=== PATIENT | male | born 1950 | race Caucasian/White ===

== ENCOUNTER 2020-09-24 13:32 | Outpatient (CLI) | payer MEDICARE, SELFPAY ==
--- NOTE | ~2020-09-24 | MR_ITS ---
EXAMINATION: MR lumbar spine wo [facility] EXAM DATE: 09/24/2020 14:13 INDICATION: Lumbar radiculopathy radiculopathy. Left hip pain. TECHNIQUE: Multi-sequential, multiplanar MR images of the lumbar spine were obtained without contrast . Sagittal T1, T2, T2 fat saturation images. Axial T2 weighted images. Comparison is made to prior examination from 05/06/2018. FINDINGS: There is moderate disc disease at L4-5, mild at the other lumbar levels. There is 3 mm ante rolisthesis L5 on S1 with bilateral chronic spondylolysis identified. There are no suspicious marrow signal abnormalities. Paraspinal soft tissue is unremarkable. The conus medullaris terminates at the L1/2 level and has normal signal intensity and morphology. Level by level evaluation: T12-L1: Disc does not extend beyond the endplate margin. Facet arthropathy: Mild. Neural foraminal stenosis: No stenosis. Central canal stenosis: No stenosis. L1-L2: Disc does not extend beyond the endplate margin. Facet arthropathy: Mild. Neural foraminal stenosis: No stenosis. Central canal stenosis: No stenosis. L2-L3: There is a minimal diffuse disc bulge. Facet arthropathy: Mild to moderate. Neural foraminal stenosis: No stenosis. Central canal stenosis: No stenosis. L3-L4: There is a mild diffuse disc bulge. Facet arthropathy: Moderate. Neural foraminal stenosis: No stenosis. Central canal stenosis: Mild. L4-L5: There is a mild diffuse disc bulge. Facet arthropathy: Mild to moderate. Neural foraminal stenosis: Mild left. Central canal stenosis: No stenosis. L5-S1: There is a mild diffuse disc bulge, with superimposed small far left protrusion into the neura l foramen and lateral recess. Facet arthropathy: Mild. Neural foraminal stenosis: Moderate left, mild to moderate right. Central canal stenosis: No stenosis. There is mild progression in lumbar spondylosis compared to 2018 study. IMPRESSION: 1. L5-S1 mild disc bulge, left-sided protrusion contributing to moderate left neural foraminal steno sis. 2. L5-S1 chronic bilateral spondylolysis and 3 mm anterolisthesis. Reviewed, dictated and finalized at location B. [facility] [employer] IMPRESSION: 1. L5-S1 mild disc bulge, left-sided protrusion contributing to moderate left neural foraminal stenosis. 2. L5-S1 chronic bilateral spondylolysis and 3 mm anterolisthesis.
== END 2020-09-24 13:33 ==
PROVIDERS: PCP Internal Medicine; Visit Provider Nurse Practitioner Family
DX: M47.27 Other spondylosis with radiculopathy, lumbosacral region (principal); M48.07 Spinal stenosis, lumbosacral region; M47.25 Other spondylosis with radiculopathy, thoracolumbar region; M48.05 Spinal stenosis, thoracolumbar region
CPT/HCPCS: 72148

== ENCOUNTER 2022-03-26 15:48 | Emergency (ER) | payer MEDICARE, SELFPAY ==
[2022-03-26 16:16] VITALS: BP 122/64; PULSE 56; RESP 16; TEMP 36.7; O2SAT 98
--- NOTE | 2022-03-26 16:45 | ED.SKABFB ---
HPI - Skin/Abscess/Foreign Bdy General Chief complaint: Skin/Abscess/Foreign Body Stated complaint: infected right 4th finger Time Seen by Provider: 03/26/22 16:45 Source: patient, RN notes reviewed and old records reviewed Mode of arrival: ambulatory Limitations: no limitations History of Present Illness HPI narrative: 71-year-old male presents to the [facility] with complaints of an infected right fourth finger trigger and symptoms started states its been a couple of days they have been trying up to poke a needle and it Patient denies any diabetes. reports that he has anxiety, depression and heart issues. Per medical record has hypertension and high cholesterol Related Data Home Medications Medication Instructions Recorded Confirmed atorvastatin 20 mg tablet 20 mg PO DAILY 10/03/19 11/07/21 bupropion HCl 300 mg 24 hr tablet, 300 mg PO QAM 10/03/19 11/07/21 extended release (Wellbutrin XL) carvedilol 6.25 mg tablet 6.25 mg PO Q12H 10/03/19 11/07/21 escitalopram oxalate 20 mg tablet 10 mg PO DAILY 10/03/19 11/07/21 (Lexapro) fluticasone propionate 50 1 spray intranasal DAILY 10/03/19 11/07/21 mcg/actuation nasal spray,suspension (Flonase Allergy Relief) ipratropium 0.5 mg-albuterol 3 mg 3 ml inhalation Q6H PRN 10/03/19 11/07/21 (2.5 mg base)/3 mL nebulization soln lisinopril 20 mg tablet 20 mg PO DAILY 10/03/19 11/07/21 loratadine 10 mg tablet (Claritin) 10 mg PO DAILY 10/03/19 11/07/21 metformin 500 mg tablet 500 mg PO DAILY 10/03/19 11/07/21 omeprazole 40 mg capsule,delayed 40 mg PO DAILY 10/03/19 11/07/21 release triamcinolone acetonide 0.025 % 1 applic topical DAILY 10/03/19 11/07/21 topical ointment Allergies Allergy/AdvReac Type Severity Reaction Status Date / Time No Known Allergies Allergy Unknown Verified 11/07/21 14:55 Review of Systems Review of Systems: All systems reviewed & are unremarkable except as noted in HPI and below Constitutional: Constitutional: Reports no additional constitutional complaints, Denies chills and Denies fever(s) Eyes: Eyes: Reports no additional eye complaints ENT: Reports system reviewed and no additional complaints, except as documented Cardiovascular: Cardiovascular: Reports no additional cardiovascular complaints Respiratory: Respiratory: Reports no additional respiratory complaints Gastrointestinal: Gastrointestinal: Reports no additional gastrointestinal complaints Musculoskeletal: Musculoskeletal: Reports no additional musculoskeletal complaints Integumentary/Breasts: Skin/Breast: Reports as per HPI and Reports erythema (Base of nail right 4th finger) Neurologic: Reports system reviewed and no additional complaints, except as documented Psychiatric: Psychiatric: Reports no additional psychiatric complaints Allergic/Immunologic: Allergic/Immunologic: Reports no additional allergic/immunologic complaints [facility] Past Medical History Medical History Diabetes Hypertension Obesity (BMI 30-39.9) Family History Family History Sibling Depression Family history of arthritis Asthma Father Family history of diabetes mellitus in first degree relative Family history of lung cancer Acute myocardial infarction Diabetes mellitus Family history of cardiovascular disease Family history of malignant neoplasm Mother Family history of cardiovascular disease Acute myocardial infarction Social History Social History Smoking status: Former smoker Smoking end date: 09/10/01 Alcohol intake: current Alcohol use details: rarely Comments At the time of my signature, I reviewed and agree with the nursing past medical, surgical, social, and family history. There is no relevant family history pertinent to the patient complaint. Exam Const: Gen
== END 2022-03-26 17:27 | disposition home or self-care (01) ==
PROVIDERS: Emergency Provider Nurse Practitioner; PCP Internal Medicine
DX: L03.011 Cellulitis of right finger (principal); E11.9 Type 2 diabetes mellitus without complications; I10 Essential (primary) hypertension; Z87.891 Personal history of nicotine dependence
CPT/HCPCS: 10060; 87070; 87075; 87077; 87147; 87181; 87186; 87205; 99213; G0463

== ENCOUNTER → 2022-04-11 15:40 | Outpatient (CLI) | payer MEDICARE, SELFPAY ==
--- NOTE | ~2022-04-11 | MR_ITS ---
EXAMINATION: MR cervical spine wo con DATE: 04/11/2022 16:31 INDICATION: Cervical myelopathy. TECHNIQUE: Magnetic resonance imaging (MRI) of the cervical spine was performed without intravenous c ontrast. Sequences included sagittal T2-weighted FSE, sagittal T2-weighted FS FSE, sagittal T1-weight ed FSE, axial MERGE, and axial T2-weighted FSE. COMPARISON: CT cervical spine 01/11/2019, MRI 06/05/2018 FINDINGS: There is kyphosis of cervical spine. There is 2 mm retrolisthesis of C5 on C6. There is mil d chronic anterior wedging of C4, C5, and C6 vertebral bodies. There is severely decreased disc heigh t at C4-C5 and C5-C6. There is increased T2-weighted signal intensity in the spinal cord at C3-C4, co nsistent with myelomalacia. The following disc levels are specifically discussed: C2-C3: The disc does not extend beyond the endplate margin. There is ankylosis of the uncovertebral j oints without hypertrophy. There is mild right facet joint osteoarthritis. There is ankylosis of left facet joint with mild hypertrophy. There is mild left neural foraminal stenosis. There is no central canal stenosis. C3-C4: There is a central protrusion. There is mild bilateral uncovertebral joint osteoarthritis. The re is severe bilateral facet joint osteoarthritis. There is mild left neural foraminal stenosis. Ther e is mild central canal stenosis. C4-C5: The disc is bulging. There is severe bilateral uncovertebral joint osteoarthritis. There is mo derate right and severe left facet joint osteoarthritis. There is moderate bilateral neural foraminal stenosis. There is mild central canal stenosis with ventral indentation of the spinal cord. C5-C6: There is bulging. There is severe bilateral uncovertebral joint osteoarthritis. There is mild bilateral facet joint osteoarthritis. There is moderate bilateral neural foraminal stenosis. There is mild central canal stenosis. C6-C7: The disc is bulging. There is mild bilateral uncovertebral joint osteoarthritis. There is verito re bilateral facet joint osteoarthritis. There is no neural foraminal stenosis. There is mild central canal stenosis. C7-T1: The disc does not extend beyond the endplate margin. There is no uncovertebral joint osteoarth ritis. There is severe bilateral facet joint osteoarthritis. There is mild right neural foraminal jes nosis. There is no central canal stenosis. IMPRESSION: 1. Myelomalacia at C3-C4. Motion artifact decreases specificity. 2. Severe cervical spondylosis, stable from 06/05/2018. Reviewed, dictated and finalized at location A.
== END ==
PROVIDERS: PCP Internal Medicine; Visit Provider Internal Medicine
DX: G95.9 Disease of spinal cord, unspecified (principal); M47.892 Other spondylosis, cervical region
CPT/HCPCS: 72141

== ENCOUNTER → 2022-07-03 11:02 | Outpatient (CLI) | payer MEDICARE, SELFPAY ==
--- NOTE | ~2022-07-03 | XR_ITS ---
XR cervical spine 4-5V DATE: 07/03/2022 11:19 INDICATION: Neck pain TECHNIQUE: AP, open-mouth and flexion, extension and neutral lateral views COMPARISON: None FINDINGS: There is reversal of cervical curvature, likely due to muscle spasm. C1 and C2 are normally aligned and the odontoid process is intact. There is 2 mm anterolisthesis at C3-4 in flexion, 1.2 mm anterolisthesis in neutral position, nearly resolved in extension. There is moderately severe degenerative disc disease at C4-5 and C5-C6 with mild retrolisthesis in ex tension. There is prominent uncovertebral joint spurring bilaterally at C4-5, C5-6. There is degenerative change at the apophyseal joints as well throughout the cervical spine. Otherwise no fracture or dislocation or locked facet or prevertebral soft tissue swelling. IMPRESSION: Reversal of cervical curvature 2 mm anterolisthesis at C3-4 in flexion, nearly reduced in extension right moderately severe degenera tive disc disease at C5-6 and C6-7, with mild retrolisthesis and extension Degenerative changes of apophyseal joints throughout the cervical spine and particularly at the C4-5 and C5-6 uncovertebral joints Reviewed, dictated and finalized at location A. IMPRESSION: Reversal of cervical curvature 2 mm anterolisthesis at C3-4 in flexion, nearly reduced in extension right mode rately severe degenerative disc disease at C5-6 and C6-7, with mild retrolisthe sis and extension Degenerative changes of apophyseal joints throughout the cervical spine and par ticularly at the C4-5 and C5-6 uncovertebral joints
== END ==
PROVIDERS: PCP Internal Medicine; Visit Provider Neurological Surgery
DX: M50.30 Other cervical disc degeneration, unspecified cervical region (principal)
CPT/HCPCS: 72050

== ENCOUNTER 2023-03-07 07:42 | Outpatient (CLI) | payer MEDICARE, SELFPAY ==
--- NOTE | 2023-03-07 | ECHO_ITS ---
Patient Info Name: Marck Hernandez Age: 72 years : 1950 Gender: Male Ht: 73 in Wt: 225 lbs BSA: 2.31 m2 HR: 47 bpm BP: 126 / 67 mmHg Heart Rhythm: Bradycardia Technical Quality: Fair Exam Date: 03/07/2023 7:51 AM Exam Location: [facility] Patient Status: Outpatient Admit Date: 03/07/2023 Staff Ordering Physician: Alejandra Mello MD Stone Planer: Kerline Villar RDCS Attending Provider: Alejandra Mello MD Referring Physician: Riaz CONLEY; Exam Type: CA echo dop color flow w con Study Info Indications I42.0 - Dilated cardiomyopathy Complete two-dimensional, color flow and Doppler transthoracic echocardiogram is performed with contrast to opacify the left ventricle and to improve the deliniation of the left ventricle endocardial borders. Contrast/Agitated Saline Contrast/Ag. Saline: Definity Amount: 3.00 ml Administered By: Kerline Villar RDCS New IV Access: Left Site Condition: IV removed Summary 1. Left ventricular chamber dimension is mildly enlarged. 2. Left ventricular systolic function is normal, estimated at 55-60%. 3. There is mildly increased left ventricular wall thickness. 4. The left ventricular diastolic function is grade I diastolic dysfunction. 5. Left atrial chamber dimension is moderately enlarged. 6. There is mild mitral valve regurgitation. 7. There is mild tricuspid valve regurgitation. 8. Mild pulmonary hypertension, estimated pulmonary arterial systolic pressure is 41 mmHg. Left Ventricle Left ventricular chamber dimension is mildly enlarged. Left ventricular systolic function is normal, estimated at 55-60%. There is mildly increased left ventricular wall thickness. The left ventricular diastolic function is grade I diastolic dysfunction. Right Ventricle Right ventricular chamber dimension is normal. Right ventricular systolic function is normal. Left Atria Left atrial chamber dimension is moderately enlarged. Right Atria Right atrial chamber dimension is normal. Atrial Septum Intact interatrial septum visualized by color flow imaging. Aortic Valve The aortic valve is trileaflet. There is mild aortic valve sclerosis. There is no aortic valve stenosis. There is trace aortic valve regurgitation. Pulmonic Valve The pulmonic valve is normal. There is no pulmonic valve stenosis. There is trace pulmonic regurgitation. Mitral Valve The mitral valve has normal leaflets. There is no mitral valve stenosis. There is mild mitral valve regurgitation. Tricuspid Valve The tricuspid valve leaflets are normal. There is no significant tricuspid valve stenosis. There is mild tricuspid valve regurgitation. Mild pulmonary hypertension, estimated pulmonary arterial systolic pressure is 41 mmHg. Pericardium/Pleural The pericardium appears normal. There is trivial pericardial effusion. Inferior Vena Cava Normal inferior vena cava with >50% collapse upon inspiration consistent with normal right atrial pressure, 10 mmHg. Aorta The aortic root size at the sinus of Valsalva is normal. The prox ascending aorta size is normal. Left Ventricular Outflow Tract Name Value Normal LVOT 2D LVOT Diameter 2.05 cm LVOT Doppler
[2023-03-07] MEDS: PERFLUTREN LIPID MICROSPHERES 1.5 ML VIAL DILUTED TO 10 ML TOTAL VOLUME IV PUSH (08:45)
--- NOTE | 2023-03-07 09:26 | IVDEFINITY ---
Prior to administration of IV Definity the patient was educated on the risks and benefits of the imaging enhancing agent including potential adverse side effects. The patient verbalized understanding. Allergies were verified. No exclusion criteria were identified and at least one of the following inclusion criteria were met: 1) physician request, 2) patient technically difficult to image (per the [place] [employer] guidelines of two or more segments not discernable within the apical view), or 3) questionable left ventricular function. ?
== END 2023-03-07 07:43 | disposition home or self-care (01) ==
LOC: ANHCARD 07:43
PROVIDERS: PCP Internal Medicine; Visit Provider Internal Medicine Cardiovascular Disease
DX: I42.0 Dilated cardiomyopathy (principal)
CPT/HCPCS: C8929; Q9957

== ENCOUNTER 2024-06-10 09:07 | Outpatient (CLI) | payer MEDICARE, SELFPAY ==
--- NOTE | 2024-07-07 13:07 | P.SLEEP_ITS ---
Sleep Study Date of Study: 06/10/24 Ordering Provider: YUMI Rhoades Interpreting Physician: Angie Bush DO Sleep Study Type: Split Polysomnogram Height: 1.83 m Weight: 106.594 kg Body Mass Index: 31.8 Neck Circumference (inches): 17 [place]: 9 Reason for Sleep Study Snoring, daytime hypersomnia, concerns for RBD. Previously diagnosed JS. Not compliant with BPAP Sleep History The patient is a 73-year-old male that had a sleep study ordered by the pulmonary group so the patient could requalify for PAP supplies after being noncompliant as well as evaluating the possibility of REM behavioral disorder. The patient denies awakening from sleep short of breath. He denies awakening at night with heartburn, belching or cough. He frequently snores. He occasionally snores loudly enough that others complain. He rarely has trouble sleeping when he has a cold. He denies waking up gasping for air throughout the night. He denies having breathing problems at night observed by himself or others. He rarely sweats excessively at night. He denies having heart palpitations or irregular heartbeats during the night. He occasionally falls asleep during the day but never while driving. He denies cataplexy. He occasionally has trouble at school or work due to sleepiness. He rarely feels unable to move while waking up or falling asleep. He denies experiencing vivid dreamlike scenes upon awakening or falling asleep. He denies feeling afraid of going to sleep. He rarely has nightmares. He rarely remembers his dreams. He rarely has thoughts racing through his mind. He rarely feels sad, depressed or anxious. He rarely has muscular tension. He rarely notices parts of his body jerk. He rarely kicks during the night. He denies having crawling and aching feelings in his legs and denies having leg pain during the night. He denies grinding his teeth during sleep and denies awakening with morning jaw pain. He is occasionally bothered by pain during the day but never awakened by pain during the night. He rarely wakes up feeling stiff in the morning. He rarely wakes up with sore or achy muscles. He rarely wakes up with pain in the neck, spine or other joints. He goes to bed at midnight on weekdays and at 2:00 a.m. on the weekends. It takes him 15-30 minutes to fall asleep. He wakes up 3-4 times throughout the night to urinate and is able to fall back asleep within 10 minutes. He wakes up at 10:00 a.m. on weekdays and at 11:00 a.m. on the weekends. He typically gets 6 8:11 p.m. of sleep per night. He will stay in bed for 10 minutes after waking up in the morning. He currently lives with his . He denies consuming any caffeinated beverages within 2 hours of bedtime. He denies engaging in physical exercise before bedtime. He will watch television before falling asleep. He will take naps in the afternoon or the evening but they are not refreshing. He consumes 4 caffeinated beverages per day. He quit smoking cigarettes 15 years ago. He denies alcohol and recreational drug use. [facility] Past Medical History Medical History Diabetes Diabetic polyneuropathy Hypertension Obesity (BMI 30-39.9) Surgical History Surgical History Hx of cholecystectomy Family History Family History Sibling Depression Family history of arthritis Asthma Father Family history of diabetes mellitus in first degree relative Family history of lung cancer Acute myocardial infarction Diabetes mellitus Family history of cardiovascular disease Family history of malignant neoplasm Mother Family history of cardiovascular disease Acute myocardial infarction Social History Social History Smoking status: Former smoker Smoking end date: 09/10/01 Alcohol intake: current Alcohol use details: rarely Substance use: never Substance use type: does not use Lack of Transportation: No Lack of Food: Never True Current Housing: I Have Housing Concerned About Future Housing: No Difficulty Paying Gas/Electric Bills: No Difficulty Paying for Meds: No Currently Unemployed: No Education: Trade/Vocational Certificate Difficulty w/ Childcare or Family Care: No Medications Home Medications Medication Instructions Recorded Confirmed Type atorvastatin 20 mg tablet 20 mg PO DAILY 10/03/19 04/25/24 History bupropion HCl 300 mg 24 hr tablet, 300 mg PO QAM 10/03/19 04/25/24 History extended release (Wellbutrin XL) carvedilol 6.25 mg tablet 6.25 mg PO Q12H 10/03/19 04/25/24 History escitalopram oxalate 20 mg tablet 10 mg PO DAILY 10/03/19 04/25/24 History (Lexapro) metformin 500 mg tablet 500 mg PO DAILY 10/03/19 04/25/24 History omeprazole 40 mg capsule,delayed 40 mg PO DAILY 10/03/19 04/25/24 History release triamcinolone acetonide 0.025 % 1 applic topical DAILY 10/03/19 04/25/24 History topical ointment morphine 15 mg tablet,extended 15 mg PO Q12H 06/05/22 04/25/24 History release tadalafil 5 mg tablet 5 mg PO DAILY 12/07/22 04/25/24 History coenzyme X01-[id number] E 100 mg-100 2 cap PO 05/08/23 04/25/24 History unit capsule tamsulosin 0.4 mg capsule 0.4 mg PO DAILY 12/07/23 04/25/24 History gabapentin 300 mg capsule See Rx Instructions .Route 01/22/24 04/25/24 Rx .COMPLEX #180 caps eszopiclone 2 mg tablet (Lunesta) 2 mg PO ONCE #1 tablet 04/25/24 04/25/24 Rx fexofenadine 180 mg tablet 180 mg PO DAILY 04/25/24 04/25/24 History Sleep Procedure A full night polysomnogram using the IGG multi-channel system recorded the standard physiologic parameters including EEG, EOG, submentalis EMG, anterior tibialis EMG, EKG, body position, nasal and oral airflow using nasal pressure sensor and thermistor.? Respiratory parameters of chest and abdominal movements were recorded with Respiratory Inductance Plethysmography belts. Oxygen saturation was recorded by pulse oximetry. Video monitoring was also performed. Sleep stages, periodic limb movements, and EEG arousals were scored in 30 second epochs according to the criteria of the AASM Scoring Manual. The Apnea-Hypopnea Index was calculated using [facility] guidelines for definition of hypopnea with 4% O2 desaturations while scoring respiratory events. Sleep Architecture During the diagnostic portion of the study, the total recording time was 158.0 minutes. The total sleep time was 126.5 minutes. Sleep latency was 9.4 minutes.? REM sleep was not achieved during this portion of the study. Sleep Efficiency was 80.1%. The patient had 13 awakenings for an awakening index of 6.2. Wake after sleep onset time was 22.0 minutes. The patient spent 9.5 minutes, 7.5% of total sleep time in Stage N1. The patient spent 117.0 minutes, 92.5% in Stage N2. The patient spent 0.0 minutes, 0.0% in Stage N3. The patient spent 0.0 minutes, 0.0% in Stage REM sleep. At 02:04:13 AM the patient was placed on PAP treatment and was titrated at pressures ranging from 5 cm H20 up to 9 cm H20 with EPR of 2. During the treatment portion of the study, the total recording time was 271.9 minutes.? The total sleep time was 146.0 minutes. Sleep latency was 11.5 minutes. REM latency was 192.0 minutes. Sleep Efficiency was 53.7%. Wake after Sleep Onset time was 114.0 minutes. The patient spent 28.5 minutes, 19.5% of total sleep time in Stage N1. The patient spent 95.5 minutes, 65.4% in Stage N2. The patient spent 0.0 minutes, 0.0% in Stage N3. The patient spent 22.0 minutes, 15.1% in Stage REM. The patient had REM without atonia present in nearly all Epochs scored as REM sleep. Gross movement was seen on video in the Epochs below: * Right upper extremity movement was seen on the following Epochs: 804-806, 812, 815-816, 819-820, 824-825, 831 * Right lower extremity movement was seen on the following Epochs: 759, 804-806, 808, 814-816 (kicking), 820, 824-825, 831 * Left lower extremity movement was seen on the following Epoch: 836 * Bilateral lower extremity movement was seen on the following Epochs: 810, 812, 837-839 (kicking) Respiratory Analysis During the diagnostic portion of the study, the patient had 27 hypopneas, 4 obstructive apneas and 1 central apnea for an overall Apnea Hypopnea Index of 15.2 events per hour. The REM Apnea Hypopnea Index was 0. The NREM Apnea Hypopnea Index was 15.2. The patient had a Central Apnea Hypopnea Index of 0.5. There was no evidence of Jake-Haley Respirations. During the treatment portion of the study, the patient had 6 hypopneas, 1 obstructive apnea, 3 mixed apneas and 19 central apneas for an overall Apnea Hypopnea Index of 11.9 events per hour. The REM Apnea Hypopnea Index was 2.7. The NREM Apnea Hypopnea Index was 13.5. The patient had a Central Apnea Hypopnea Index of 7.8. There was no evidence of Jake-Haley Respirations. The patient was started on CPAP 5 cm H2O and titrated to CPAP 9 cm H2O with EPR of 2 due to central apneas and hypopneas. The patient was able to fall asleep starting on CPAP 5 cm H2O. The patient was able to achieve REM sleep starting on CPAP 8 cm H2O. The patient was unable to achieve a residual AHI less than 15 during the titration portion of the study. On CPAP 7 cm H2O, the patient spent 32.5 minutes in NREM and 0 minutes in REM with 1 central apnea, 2 mixed apneas and 6 hypopneas, resulting in an AHI of 16.6. The patient had a sleep efficiency of 90.3% at this pressure setting. As the pressure was titrated higher, the patient developed more central apneas and the sleep efficiency decreased. Arousals During the diagnostic portion of the study, there were a total of 118 arousals for an arousal index of 56.0.? There were 13 respiratory arousals for an index of 6.2. There were 35 periodic limb movement arousals for an index of 16.6.? There were 3 isolated limb movement arousals for an index of 1.4. There were 68 spontaneous arousals for an index of 32.3. During the treatment portion of the study, there were a total of 117 arousals for an index of 48.1.? There were 14 respiratory arousals for an index of 5.8. There were 10 periodic limb movement arousals for an index of 4.1.? There were 3 isolated limb movement arousals for an index of 1.2. There were 90 spontaneous arousals for an index of 37.0. Periodic Limb Movements During the diagnostic portion of the study, the patient had 9 isolated limb movements with an index of 4.3. The patient had 134 periodic limb movements with an index of 63.6, which is elevated (normal < 15). The patient had a total of 143 limb movements with a total limb movement index of 67.8. During the treatment portion of the study, the patient had 13 isolated limb movements with an index of 5.3. The patient had 34 periodic limb movements with an index of 14.0. The patient had a total of 47 limb movements with a total limb movement index of 19.3. Oximetry Data During the diagnostic portion of the study, the patient had an average oxygen saturation of 92.5% in wake with a minimum oxygen saturation of 87% and a maximum oxygen saturation of 97%. The patient had an average oxygen saturation of 91.8% in sleep with a minimum oxygen saturation of 86.0% and a maximum oxygen saturation of 98.0%. The patient had 45 oxygen desaturations resulting in an Oxygen Desaturation Index of 21.3. The patient spent 1.6 minutes, 1.1% of total sleep time with an oxygen saturation less than 88%. During the treatment portion of the study, the patient had an average oxygen saturation of 91.5% in wake with a minimum oxygen saturation of 81.0% and a maximum oxygen saturation of 98.0%. The patient had an average oxygen saturation of 90.5% in sleep with a minimum oxygen saturation of 81.0% and a maximum oxygen saturation of 95.0%. The patient had 33 oxygen desaturations resulting in an Oxygen Desaturation Index of 14.0. The patient spent 11.2 minutes, 4.3% of total sleep time with an oxygen saturation less than 88%. Snoring Profile Moderate snoring was present in the baseline portion of the study. Cardiac Profile The EKG lead showed normal sinus rhythm. No arrhythmias or PVCs were seen. During the diagnostic portion of the study, the average pulse rate was 48.0 bpm.? The minimum pulse rate was 44.0 bpm. The maximum pulse rate was 62.0 bpm. During the treatment portion of the study, the average pulse rate was 46.3 bpm.? The minimum pulse rate was 42.0 bpm. The maximum pulse rate was 68.0 bpm. EEG Profile No signs of seizure activity seen. Assessment and Plan Assessment and Plan (1) Treatment-emergent central sleep apnea: Code(s): G47.39 - Other sleep apnea Status: Acute Assessment and Plan: In the baseline portion of the study, the patient had an overall AHI of 15.2 with desaturation down to 86%. This is consistent with moderate sleep apnea. The patient was started on CPAP 5 cm H2O and titrated to CPAP 9 cm H2O with EPR of 2 due to central apneas and hypopneas. No optimal pressure setting was found during this study. The patient was on BPAP 16/12 cm H2O in the past but had an elevated residual AHI with a ANA of 3.5. The patient will likely end up needing either BPAP with a back-up rate or an ASV to control his sleep apnea. I recommend that the patient have a BPAP Titration with the use of a hypnotic (Lunesta 2-3 mg or Ambien 10 mg) to ensure we obtain enough sleep data and find an optimal pressure. (2) REM behavioral disorder: Code(s): G47.52 - REM sleep behavior disorder Status: Acute Assessment and Plan: The patient had REM without atonia present in nearly all of the epochs scored as REM. Movement was seen on video in nearly all extremities. Based on the patient's clinical history and the findings of this sleep study, his presentation is consistent with REM Behavioral Disorder. The patient should be counseled that in spontaneously occurring cases, RBD is a prodromal syndrome of alpha-synuclein neurodegeneration. The frequency of dream enactment behaviors is not predictive of injury, so all patients with RBD and their bed partners should be counseled on modifying the sleeping environment to prevent injury. Firearms should not be accessible, and sharp or easily breakable furniture and objects (such as lamps) should be removed from the immediate sleeping area. In the event of continued vigorous behaviors, sleeping alone is advised.?Melatonin is our preferred first-line therapy in patients with frequent, disruptive or injurious behaviors. We typically start with 3 mg at night and then increase in 3 mg increments until the disruptive and injurious behaviors have ceased. Data The data obtained during this sleep study is adequate for interpretation. Certification This sleep study has been reviewed by a board certified sleep medicine physician.
[2024-07-08 08:58] VITALS: BMI 31.8
== END 2024-06-11 07:30 | disposition home or self-care (01) ==
LOC: ANHCSM 09:07
PROVIDERS: PCP Internal Medicine; Visit Provider Physician Assistant
DX: G47.39 Other sleep apnea (principal); G47.33 Obstructive sleep apnea (adult) (pediatric); G47.52 REM sleep behavior disorder
CPT/HCPCS: 95811

== ENCOUNTER 2024-09-02 09:27 | Outpatient (CLI) | payer MEDICARE, SELFPAY ==
--- NOTE | ~2024-09-02 | MR_ITS ---
EXAMINATION: MR lumbar spine wo con DATE: 09/02/2024 10:12 INDICATION: Low back pain. TECHNIQUE: Magnetic resonance imaging (MRI) of the lumbar spine was performed without intravenous con trast. Sequences included sagittal T2-weighted FSE, sagittal T2-weighted FS FSE, sagittal T1-weighted FSE, and axial T2-weighted FSE. COMPARISON: Lumbar spine MRI 05/06/2018 FINDINGS: There is 6 degrees dextrocurvature of lumbar spine. There are chronic bilateral L5 pars def ects. There is 7 mm anterolisthesis of L5 on S1. There is mild chronic height loss of L5 vertebral shahzad dy posteriorly. There is mildly decreased disc height at L3-L4 and moderately decreased disc height a t L4-L5 and L5-S1. The distal spinal cord signal intensity is normal. The conus medullaris is at L2. The following disc levels are specifically discussed: L1-L2: The disc does not extend beyond the endplate margin. There is moderate bilateral facet joint o steoarthritis. There is no neural foraminal stenosis. There is no central canal stenosis. L2-L3: The disc is bulging. There is severe bilateral facet joint osteoarthritis. There is mild bilat eral neural foraminal stenosis. There is mild central canal stenosis. L3-L4: The disc is bulging. There is severe bilateral facet joint osteoarthritis. There is mild bilat eral neural foraminal stenosis. There is mild central canal stenosis. L4-L5: The disc is bulging and has an annular fissure. There is moderate bilateral facet joint osteoa rthritis. There is mild bilateral neural foraminal stenosis. There is mild central canal stenosis. L5-S1: The disc is bulging and has an annular fissure. There is mild bilateral facet joint osteoarthr itis. There is mild bilateral neural foraminal stenosis. There is no central canal stenosis. IMPRESSION: 1. Moderate lumbar spondylosis. 2. Chronic bilateral L5 pars defects with grade 1 anterolisthesis of L5 on S1. Reviewed, dictated and finalized at location A. TH INFORMATION ASSISTANT
== END 2024-09-02 09:28 | disposition home or self-care (01) ==
LOC: MICIMG 09:28
PROVIDERS: PCP Internal Medicine; Referring Provider Chiropractor Rehabilitation; Visit Provider Nurse Practitioner Family
DX: M47.896 Other spondylosis, lumbar region (principal)
CPT/HCPCS: 72148

== ENCOUNTER 2024-11-03 14:15 | Outpatient (CLI) | payer MEDICARE, SELFPAY ==
[2024-11-03 15:13] LABS: Influenza A QL RT-PCR Positive (Negative); Influenza B QL RT-PCR Negative (Negative); RSV RNA, RT-PCR Negative (Negative); SARS-CoV-2 RNA PCR Negative (Negative)
--- OUTSIDE RECORDS SUMMARY | 2024-11-03 16:39 | XMS_ITS ---
Author Organization [facility] johnathan Address [address] [place] [address] Care Team Providers Care Flight Coordinator Name Role Phone Eliz Caldwell Unavailable [phone] zzzzMigration, zzzzProvider Unavailable Unav ailable Allergies No Known Allergies REASON FOR VISIT [place] [place] Medication SIG (Take, Route, Frequency, Duration) Notes Start Date End Date Status Gabapentin 300 MG Oral Ac tive Claritin 10 mg take 1 tablet (10 mg ) by oral route once daily Oral 1 Active Carvedilol 3.125 MG Oral Active Lexapro 20 MG take 1 tablet (20 mg ) by oral route once daily Oral 1 Active Omeprazole 20 MG Oral Act tez buPROPion HCl ER (XL) 300 MG take 1 tabl et (300 mg) by oral route once daily Oral 1 Active Zolpidem Tartrate 10 MG Oral Active Triamcinolone Acetonide 0.1% External Active Albuterol Sulfate HFA 108 (90 Base) MCG/ACT Inhalation Active Diclofenac Sodium 75 MG take 1 tablet (7 5 mg) by oral route 2 times per day Oral 2 Active Ipratropium-Albuterol 0.5-2.5 (3) MG/3ML Inhalation Active Lisinopril 20 MG Oral Act tez Encounters Encounter Location Date Provider Diagnosis [facility] [address] [place] [address] 07/01/2023 zzzzProvider zzzzMigration Plan Of Treatment No Information Progress Notes * Marck HERNANDEZ LDOB:1949 (74 yo M)Acc No.[id number]:07/01/2023 Patient: Riaz NEGRO Marck Cherry :1950 A ge:72 Y S ex:Male Address:[address] [place] [address], [place], [address] Subjective: * Chief Complaints: * E MR-Osiel * Medical History: * Surgical History: C holecstectomy; 2015-11-16 * Hospitalization/Major Diagno stic Procedure: * Social History: M igrated Social History: M igrated Social History: :: 1 Child , Exercise :: Never exercises , Marital Status :: , Substance Use :: Alcohol :: Never :: note : Use status used: Never , Substance Use :: Caffeine , Substance Use :: Denies illicit substance abuse , Substance Use :: Former smoker. * Medications: T akingLexapro 20 MG Tablet take 1 tablet (20 mg) by oral route once daily Oral 1 Albuterol Sulfate HFA 108 (90 Base) MCG/ACT Aerosol Solution Inhalation Gabapentin 300 MG Capsule Oral buPROPion HCl ER (XL) 300 MG Tablet Extended Release 24 Hour take 1 tablet (300 mg) by oral route once daily Oral 1 Claritin 10 mg Tablet take 1 tablet (10 mg) by oral route once daily Oral 1 Omeprazole 20 MG Capsule Delayed Release Oral Carvedilol 3.125 MG Tablet Oral Lisinopril 20 MG Tablet Oral Ipratropium- Albuterol 0.5-2.5 (3) MG/3ML Solution Inhalation Triamcinolone Acetonide 0.1% Cream External Zolpidem Tartrate 10 MG Tablet Oral Diclofenac Sodium 75 MG Tablet Delayed Release take 1 tablet (75 mg) by oral route 2 times per day Oral 2 Taking Lexapro 20 MG Tablet take 1 tablet (20 mg) by oral route once daily Oral 1 Taking Albuterol Sulfate HFA 108 (90 Base) MCG/ACT Aerosol Solution Inhalation Taking Gabapentin 300 MG Capsule Oral Taking buPROPion HCl ER (XL) 300 MG Tablet Extended Release 24 Hour take 1 tablet (300 mg) by oral route once daily Oral 1 Taking Claritin 10 mg Tablet take 1 tablet (10 mg) by oral route once daily Oral 1 Taking Omeprazole 20 MG Capsule Delayed Release Oral Taking Carvedilol 3.125 MG Tablet Oral Taking Lisinopril 20 MG Tablet Oral Taking Ipratropium-Albuterol 0.5-2.5 (3) MG/3ML Solution Inhalation Taking Triamcinolone Acetonide 0.1% Cream External Taking Zolpidem Tartrate 10 MG Tablet Oral Taking Diclofenac Sodium 75 MG Tablet Delayed Release take 1 tablet (75 mg) by oral route 2 times per day Oral 2 * Allergies: N .K.D.A.no[Allergies Verified] Objective: * Vitals: * Physical Examination: Assessment: Plan: * Treatment: * Procedure Codes: * * Date:
--- OUTSIDE RECORDS SUMMARY | 2024-11-03 16:39 | XMS_ITS | Patient Health Record ---
Author Organization [facility] Address [address] [place] [address] Care Team Providers Care Outside Sales Name Role Phone Eliz Caldwell Unavailable [phone] Allergies No Known Allergies Reason For Referral No Information Medications Medication SIG (Take, Route, Frequency, Duration) Notes Start Date End Date Status Gabapentin 300 MG Oral Ac tive Claritin 10 mg take 1 tablet (10 mg ) by oral route once daily Oral 1 Active Ipratropium-Albuterol 0.5-2.5 (3) MG/3ML Inhalation Active Carvedilol 3.125 MG Oral Active buPROPion HCl ER (XL) 300 MG take 1 tabl et (300 mg) by oral route once daily Oral 1 Active Zolpidem Tartrate 10 MG Oral Active Triamcinolone Acetonide 0.1% External Active Lexapro 20 MG take 1 tablet (20 mg ) by oral route once daily Oral 1 Active Albuterol Sulfate HFA 108 (90 Base) MCG/ACT Inhalation Active Omeprazole 20 MG Oral Act tez Diclofenac Sodium 75 MG take 1 tablet (7 5 mg) by oral route 2 times per day Oral 2 Active Lisinopril 20 MG Oral Act tez Problems Problem Type SNOMED Code ICD Code Onset Dates Problem Status W/U Status Risk Notes Problem Pruritus (926440698) Pruritus, unspecified (L29.9) Active confirmed Plan Of Treatment No Information Insurance Providers Payer Name Payer Address Payer Phone Subscriber Number Group Number Insured Name Patient Relationship to Insured Coverage Start Date Coverage End Date Mirella BARROW [address] [place] [address] [id number] Marck Hernandez Self - patient is the insured 6 Medical (General) History Surgical History Surgery Date(Month/Year) Cholecstectomy; 2015-11-16
--- OUTSIDE RECORDS SUMMARY | 2024-11-03 16:39 | XMS_ITS | Clinical Summary ---
Author Organization [facility] Address [address] [place] [address] Care Team Providers Care Emotional Disabilities Teacher Name Role Phone Marck Pandya MD Primary Care Provider Allergies Active Allergy Reactions Criticality Noted Date Comments Trazodone Other (See comments) Low 11/01/2023 Made me really antsy and couldn't sleep Medications albuterol (PROVENTIL,VENT MADDY) 0.63 mg/3 mL nebulizer solution Take 0.83 mg by nebulization every 6 (six) hours as needed for wheezing Active coenzyme Q10 100 mg capsule Take 2 capsules (200 mg total) by mouth daily Active b complex vitamins tablet Take 1 tablet by mouth daily Active ascorbic acid (VITAMIN C) 1,000 mg tablet Take 1 tablet (1,000 mg total) by mouth daily Active multivitamin capsuleIndicati ons:with fiber per pt Take 1 capsule by mouth daily Active metFORMIN (GLUCOPHAGE) 500 mg tablet Take 1 tablet (500 mg total) by mouth daily with breakfast Active albuterol HFA (PROVENTIL HFA,VENTOLIN HFA,PROAIR HFA) 90 mcg/actuation inhaler Inhale 2 puffs every 4 (four) hours as needed for wheezing Active buPROPion XL (WELLBUTRIN XL) 300 mg 24 hr tablet Take 1 tablet (300 mg total) by mouth daily Active escitalopram (LEXAPRO) 20 mg tablet Take 1 tablet (20 mg total) by mouth daily Active gabapentin (NEURONTIN) 600 mg tablet Take 1 tablet (600 mg total) by mouth 3 (three) times a day Active guaiFENesin ER (MUCINEX) 600 mg 12 hr tablet Take 1 tablet (600 mg total) by mouth 2 (two) times a day Active morphine ER (MS CONTIN) 15 mg 12 hr tablet Take 1 tablet (15 mg total) by mouth every 12 (twelve) hours 1 Active diphenhydramine HCl (BENADRYL ALLERGY ORAL) Take by mouth Take 2 tablets before bedtime. Active clobetasoL (TEMOVATE) 0.05 % ointment 1 Active tadalafiL (CIALIS) 5 mg tablet tadalafil 5 mg tablet Take 1 tablet by mouth once daily Active meclizine (ANTIVERT) 25 mg tablet Take 1 tablet (25 mg total) by mouth 3 (three) times a day as needed 4 Active atorvastatin (LIPITOR) 20 mg tablet Take 1 tablet (20 mg total) by mouth daily 90 tablet 1 4 Active carvediloL (COREG) 6.25 mg tablet TAKE 1 TABLET BY MOUTH TWICE DAILY WITH MEALS 180 tablet 3 4 Active omeprazole (PriLOSEC) 40 mg capsule TAKE 1 CAPSULE BY MOUTH TWICE DAILY 45 MINUTES BEFORE BREAKFAST AND DINNER 180 capsule 3 5 Active Active Problems Problem Noted Date Diagnosed Date History of Naranjo's esophagus 09/27/2023 Balance problem 12/18/2022 Mixed diabetic hyperlipidemi a associated with type 2 diabetes mellitus 12/18/2022 Dizziness 11/22/2020 Esophagitis 08/19/2020 Overview (08/19/2020): Added automatically from request for surgery [id number] Vasovagal syncope 11/11/2019 Dysphagia 06/03/2019 Overview (06/03/2019): Added automatically from request for surgery [id number] Syncope and collapse 08/31/2018 Naranjo's esophagus without dysplasia 05/22/2018 Overview (05/22/2018): Added automatically from request for surgery [id number] Mixed hyperlipidemia 08/14/2017 Assessment & Plan (08/14/2017 8:47 PM AIR COMPRESSOR OPERATOR): POC lipids today show LDL cholesterol 120, and in 2015 LDL was 150. Patient has no known vascular disease but does have diet controlled diabetes and may benefit from a statin. Cardiovascular risk was calculated to be a 28% risk of a cardiac event or stroke in the next 10 years. Reviewed extensively with patient and recommend statin therapy. Obesity (BMI 30-39.9) 08/14/2017 Skin lesion of left lower extremity 08/14/2017 Assessment & Plan (08/14/2017 8:49 PM AIR COMPRESSOR OPERATOR): Does not appear infected but does need to be treated. Stricture of esophagus 01/05/2016 Obstructive sleep apnea syndrome 11/25/2015 Overview (12/14/2016): JS (obstructive sleep apnea) Chronic cough 11/25/2015 Overview (12/14/2016): Chronic cough Asthma 06/29/2015 Overview (12/14/2016): Asthma in remission Ventricular premature beats 05/18/2015 Overview (12/14/2016): PVCs (premature ventricular contractions) Assessment & Plan (08/14/2017 8:45 PM AIR COMPRESSOR OPERATOR): History of frequent PVCs, up to 18% of cardiac cycles, improved with very low- dose carvedilol. Cardiomyopathy, dilated (CMS/HCC) 05/18/2015 Overview (12/15/2016): Cardiomyopathy Assessment & Plan (08/14/2017 8:45 PM AIR COMPRESSOR OPERATOR): 2013: EF 41% 2015: EF 60% with some LV enlargement and LVH. Likely improved because the treatment of frequent PVCs with beta-suha, and general therapy for cardiomyopathy with cardia beta wall and lisinopril. Will re-evaluate LV function with an echo. Naranjo's esophagus 01/01/2015 Resolved Problems Problem Noted Date Diagnosed Date Resolved Date Weight loss 12/11/2021 12/18/2022 Palpitations 08/20/2019 12/18/2022 Other fatigue 08/31/2018 12/18/2022 Bradycardia 08/14/2017 12/18/2022 Assessment & Plan (08/14/2017 8:46 PM AIR COMPRESSOR OPERATOR): Mild asymptomatic bradycardia. Continue carvedilol Chest discomfort 12/03/2015 12/18/2022 Stomach ache 12/03/2015 12/18/2022 Naranjo's esophagus with low grade dysplasia 6 12/18/2022 Chronic combined systolic an d diastolic heart failure (CMS/HCC) 06/29/2015 12/18/2022 Overview (12/14/2016): Chronic combined systolic and diastolic CHF (congestive heart failure) Vasovagal symptom 06/29/2015 11/22/2020 Overview (12/14/2016): Vasovagal near syncope Assessment & Plan (08/14/2017 8:45 PM AIR COMPRESSOR OPERATOR): History of vasovagal syncope, no recent episodes. Difficulty in swallowing 01/01/201506/2023 Encounters Date Type Department Care Team Description 09/04/2024 5:00 PM AIR COMPRESSOR OPERATOR - 09/04/2024 6:08 PM AIR COMPRESSOR OPERATOR Emergency [facility] Emergency Department [address] [place] [address] Hip injury, right, initial encounter (Primary Dx) Discharge Disposition: Discharge to home or self care from Last 3 Months Surgical History Surgery Date Site/Laterality Comments CHOLECYSTECTOMY COLONOSCOPY KNEE SURGERY UPPER GASTROINTESTINAL ENDOSCOPY Medical History Medical History Date Comments Asthma Gastroesophageal reflux disease Diverticulosis CHF (congestive heart failur e) ([facility] ([facility]) COPD (chronic obstructive pu lmonary disease) ([facility]) pt states questionable, unsu re if he has it or not Depression Cataract Type 2 diabetes mellitus ([facility]) JS on CPAP Naranjo esophagus Hypertension Hyperlipidemia Neuropathy ([facility]) Family History Medical History Relation Name Comments Heart attack Father Myocardial infa rction; Lung cancer Father Other Mother Alive and well; Diabetes Other 1 Family history of Diabetes mellitus; Heart disease Other 2 Family history of Heart disease; Asthma Other 3 Family history of Asthma; Hypertension Other 4 Family history of Hypertension; Ovarian cancer Sister Relation Name Status Comments Father Mother Alive Other 1 Other 2 Other 3 Other 4 Sister Social History Tobacco Use Types Packs/Day Years Used Date Smoking Tobacco: Former Cigarettes Q uit: 2006 Smokeless Tobacco: Never Tobacco Cessation:Counseling Given: Not Answered Alcohol Use Standard Drinks/Week Comments Yes 0 (1 standard drink = 0.6 oz pur e alcohol) Rarely AUDIT-C Answer Date Recorded Q1: How often do you have a drink containing alc ohol? Never 11/01/2023 Average Number of Drinks Not on file 024 Frequency of Binge Drinking Not on file 10/12 Personal Safety Answer Date Recorded Have you ever been in or are you currently in a harmful physical or emotional relationship or is someone making you feel afraid or unsafe? Denies 09/04/2024 Sex and Gender Information Value Date Recorded Sex Assigned at Not on file Legal Sex Male 3:06 AM AIR COMPRESSOR OPERATOR Gender Identity Not on file Sexual Orientation Not on file Obstetrics History Last Filed Vital Signs Vital Sign Reading Time Taken Comments Blood Pressure 127/89 09/04/2024 5:45 PM AIR COMPRESSOR OPERATOR Pulse 71 09/04/2024 5:45 PM AIR COMPRESSOR OPERATOR Temperature 37 C (98.6 F) 09/04/2024 3:39 PM AIR COMPRESSOR OPERATOR Respiratory Rate 18 09/04/2024 5:45 PM AIR COMPRESSOR OPERATOR Oxygen Saturation 91% 09/04/2024 5:45 PM AIR COMPRESSOR OPERATOR Inhaled Oxygen Concentration - - Weight 102.9 kg (226 lb 13.7 oz) 09/04/2024 3:39 PM AIR COMPRESSOR OPERATOR Height 182.9 cm (6') 09/04/2024 3:39 PM AIR COMPRESSOR OPERATOR Body Mass Index 30.77 09/04/2024 3:39 PM AIR COMPRESSOR OPERATOR Plan of Treatment Health Maintenance Due Date Last Done Comments Albumin Creatinine Ratio, Urine 1950 Colon Cancer Screening-Colonoscopy 1950 Depression Screening 1950 Hemoglobin A1C 1950 Hepatitis C Screening 1950 Dilated Eye Exam 1950 Foot Exam 1950 DTaP/Tdap/Td Vaccine (1 - Tdap) 1961 Hepatitis B Screening 1968 Zoster Vaccine (1 of 2) 2000 Abdominal Aortic Aneurysm (A AA) Screen 2015 Well Visit 65+ 2015 Pneumococcal vaccine 65+ (2 of 2 - PPSV23) 08/14/2017 06/19/2017 eGFR 07/12/2021 07/12/2020 Influenza Vaccine (#1) 2024 06/19/2017, 2014 Fall Risk Assessment 11/01/2024 11/01/2023 Lipid Panel 03/18/2025 03/18/2024, 12/09, 11/01/2022, Additional history exists Procedures Procedure Name Priority Date/Time Associated Diagnosis Comments XR HIP RIGHT 2 OR 3 VIEWS ED 09/04/2024 4:06 PM AIR COMPRESSOR OPERATOR POCT LIPID PANEL Routine 03/18/2024 3:29 PM CDT Lipid screening EGFR STAT 07/12/2020 8:45 PM AIR COMPRESSOR OPERATOR from Last 3 Months or Most Recently Relevant to Health Maintenance Results * XR Hip Right 2+ views (09/04/2024 4:06 PM AIR COMPRESSOR OPERATOR) Anatomical Region Laterality Modality Lower Extremities, Hip, Pelvis Right C omputed Radiography 09/04/2024 4:27 PM AIR COMPRESSOR OPERATOR Narrative 09/04/2024 4:28 PM AIR COMPRESSOR OPERATOR EXAM DESCRIPTION: XR HIP RIGHT 2 OR 3 VIEWS REASON FOR STUDY: pain Pt c/o RT hip pain since yesterday. Pt was walking and felt his hip pop . States he has not been able to walk right since TECHNIQUE: There are 2 radiographic view(s) of the right hip . COMPARISON: No prior. FINDINGS: Normal mineralization. No acute fracture or dislocation. Mild osteoarthritis right hip. Soft tissues are unremarkable. IMPRESSION: Mild osteoarthritis right hip. THIS IS AN ELECTRONICALLY VERIFIED FINAL REPORT 09/04/2024 4:28 PM - Electronically signed by Bennett Epps M.D. MJ: YANETH Report ID: [id number] Reading Location: [id number] Procedure Note Bennett Epps MD - 09/04/2024 EXAM DESCRIPTION: XR HIP RIGHT 2 OR 3 VIEWS REASON FOR STUDY: pain Pt c/o RT hip pain since yesterday. Pt was walking and felt his hip pop . States he has not been able to walk right since TECHNIQUE: There are 2 radiographic view(s) of the right hip . COMPARISON: No prior. FINDINGS: Normal mineralization. No acute fracture or dislocation. Mild osteoarthritis right hip. Soft tissues are unremarkable. IMPRESSION: Mild osteoarthritis right hip. THIS IS AN ELECTRONICALLY VERIFIED FINAL REPORT 09/04/2024 4:28 PM - Electronically signed by Bennett Epps M.D. MJ: YANETH Report ID: [id number] Reading Location: [place] [id number] Emely IBRAHIM IMG XR PROCEDURES F inal Result * POCT lipid panel (03/18/2024 3:29 PM CDT) Cholesterol, POC 105 mg/dL HDL, POC 43 mg/dL Triglycerides, POC 88 mg/dL LDL Cholesterol POC 45 mg/dL Chol/HDL Ratio, POC 1.0 Non-HDL Cholesterol, POC 62 mg/dL Cholesterol Total, POC 105 mg/dL Capillary blood 03/18/2024 3 :29 PM CDT Bennett Tapia MD POINT OF CARE TEST ORDER BETHANY Final Result * eGFR (07/12/2020 8:45 PM AIR COMPRESSOR OPERATOR) eGFR 60 mL/min/1.7 3 m2 [facility] Comment: Interpretive Data Reference Interval Normal >/= 90 mL/min/1.73m2 Mildly decreased* 60 - 89 mL/min/1.73m2 Mildly to moderately decreased 45 - 59 mL/min/1.73m2 Moderately to severely decreased 30 - 44 mL/min/1.73m2 Severely decreased 15 - 29 mL/min/1.73m2 Kidney Failure < 15 mL/min/1.73m2 *Relative to young adult level If -[place] multiply value by 1.16. Estimated glomerular filtration rate is determined by the CKD-EPI equation recommended by the National Kidney Foundation (KDIGO 2012 Clinical Practice Guideline for the Evaluation and Management of Chronic Kidney Disease. Kidney Intnl Suppl Sep 2012;3:1). The CKD-EPI equation should not be used for patients with unstable renal function and has not been validated in children and those over 70. Current interpretive data was last reviewed 2016. Blood specimen (specimen) 07/12/2020 8:45 PM AIR COMPRESSOR OPERATOR 07/12/2020 8:56 PM AIR COMPRESSOR OPERATOR us Benjamin Chopra DO LAB BLOOD ORDERABLES Jackie ribeiro Result [facility] [address] [place] [address] from Last 3 Months or Most Recently Relevant to Health Maintenance [place] [address] T[employer] MEDICARE GOLD AETNA MEDICARE GOLD AETNA MEDICARE GOLD Advance Directives For more information, please contact: [phone] * Full Code (Latest Code Status on File) Date Activated Date Inactivated Comments 11/01/2023 12:49 PM 11/01/2023 6:04 PM * Full Code Date Activated Date Inactivated Comments 10/14/2021 12:37 PM 10/14/2021 6:21 PM * Full Code Date Activated Date Inactivated Comments 09/13/2021 11:08 AM 09/13/2021 5:23 PM * Full Code Date Activated Date Inactivated Comments 09/14/2020 10:20 AM 09/14/2020 4:51 PM * Full Code Date Activated Date Inactivated Comments 07/25/2019 10:31 AM 07/25/2019 5:33 PM Care Teams Emotional Disabilities Teacher Relationship Specialty Start Date End Date Marck Pandya MD PCP - General 12/08/16
--- OUTSIDE RECORDS SUMMARY | 2024-11-03 16:39 | XMS_ITS | Clinical Summary ---
Author Organization [facility] Address [address] [place] [address] Care Team Providers Care Inside Phone Sales Name Role Phone Marck Pandya MD Primary Care Provider [phone] Allergies No known active allergies Social History Tobacco Use Types Packs/Day Years Used Date Smoking Tobacco: Former Smokeless Tobacco: Never Alcohol Use Standard Drinks/Week Comments Never 0 (1 standard drink = 0.6 oz pur e alcohol) Sex and Gender Information Value Date Recorded Sex Assigned at Not on file Legal Sex Male 6:52 PM SANITATION MANAGER Gender Identity Not on file Sexual Orientation Not on file Last Filed Vital Signs Vital Sign Reading Time Taken Comments Blood Pressure 157/87 09/08/2021 4:30 AM SANITATION MANAGER Pulse 61 09/08/2021 4:30 AM SANITATION MANAGER Temperature 37.2 C (99 F) 09/07/2021 7:16 PM SANITATION MANAGER Respiratory Rate 18 09/08/2021 4:30 AM SANITATION MANAGER Oxygen Saturation 97% 09/08/2021 4:30 AM SANITATION MANAGER Inhaled Oxygen Concentration - - Weight 98.7 kg (217 lb 9.5 oz) 09/07/2021 7:16 P M SANITATION MANAGER Height 185.4 cm (6' 1 ) 09/07/2021 7:16 PM SANITATION MANAGER Body Mass Index 28.71 09/07/2021 7:16 PM SANITATION MANAGER Plan of Treatment Health Maintenance Due Date Last Done Comments Colorectal Cancer Screening Colonoscopy (10 Years) 1950 Hepatitis C 1968 DTaP, Tdap and Td Vaccines ( 1 - Tdap) 1969 Zoster Vaccines (1 of 2) 2000 Annual Medicare Wellness Visit 2015 Pneumococcal Vaccine: 65+ Years (2 of 2 - PPSV23 or PCV20) 06/19/2018 06/19/2017 COVID-19 Vaccine (2023-2 5 season) 2024 Influenza Adult (#1) 2024 06/19/2017, 07/08/2015 RSV Immunization or 60+ Years (1 - 1-dose 75+ series) 2025 Meningococcal B Vaccine Aged Out No l onger eligible based on patient's age to complete this topic Meningococcal Vaccine Aged Out No lisa michael eligible based on patient's age to complete this topic RSV Immunizations Under 20 Months Aged Out No longer eligible b ased on patient's age to complete this topic Insurance AETNA Care Teams Inside Phone Sales Relationship Specialty Start Date End Date Marck Pandya MD [address] [address] PCP - General INTERNAL MEDICINE 09/07/21
--- OUTSIDE RECORDS SUMMARY | 2024-11-03 16:39 | XMS_ITS | Referral Summary ---
Author Organization [facility] Address [address] [place] [address] Care Team Providers Care Banjo Repair Person Name Role Phone Marck Pandya MD Primary Care Provider Encounters Date Type Department Care Team Description 09/04/2024 5:00 PM SLIDE FASTENERS INSPECTOR - 09/04/2024 6:08 PM [facility] Emergency [facility] Emergency Department [address] [place] [id number] Hip injury, right, initial encounter (Primary Dx) Discharge Disposition: Discharge to home or self care from Last 3 Months Allergies Active Allergy Reactions Criticality Noted Date [...] (08/19/2020): Added automatically from request for surgery [id number] Vasovagal syncope 11/11/2019 Dysphagia 06/03/2019 Overview (06/03/2019): Added automatically from request for surgery [id number] Syncope and collapse 08/31/2018 Naranjo's esophagus without dysplasia 05/22/2018 Overview (05/22/2018): Added automatically from request for surgery [id number] Mixed hyperlipidemia 08/14/2017 Assessment & Plan (08/14/2017 8:47 PM SLIDE FASTENERS INSPECTOR): POC lipids today show LDL cholesterol 120, [...] 08/14/2017 Assessment & Plan (08/14/2017 8:49 PM SLIDE FASTENERS INSPECTOR): Does not appear infected but does need to be treated. Stricture of esophagus 01/05/2016 Obstructive sleep apnea syndrome 11/25/2015 Overview (12/14/2016): JS (obstructive sleep apnea) Chronic cough 11/25/2015 Overview (12/14/2016): Chronic cough Asthma 06/29/2015 Overview (12/14/2016): Asthma in remission Ventricular premature beats 05/18/2015 Overview (12/14/2016): PVCs (premature ventricular contractions) Assessment & Plan (08/14/2017 8:45 PM SLIDE FASTENERS INSPECTOR): History of frequent PVCs, up to 18% of cardiac cycles, improved with very low- dose carvedilol. Cardiomyopathy, dilated (CMS/HCC) 05/18/2015 Overview (12/15/2016): Cardiomyopathy Assessment & Plan (08/14/2017 8:45 PM SLIDE FASTENERS INSPECTOR): 2012: EF 41% 2015: EF 60% with some [...] 12/18/2022 Assessment & Plan (08/14/2017 8:46 PM SLIDE FASTENERS INSPECTOR): Mild asymptomatic bradycardia. Continue carvedilol Chest discomfort 12/03/2015 12/18/2022 Stomach ache 12/03/2015 12/18/2022 Naranjo's esophagus with low grade dysplasia 6 12/18/2022 Chronic combined systolic an d diastolic heart failure (CMS/HCC) 06/29/2015 12/18/2022 Overview (12/14/2016): Chronic combined systolic and diastolic CHF (congestive heart failure) Vasovagal symptom 06/29/2015 11/22/2020 Overview (12/14/2016): Vasovagal near syncope Assessment & Plan (08/14/2017 8:45 PM SLIDE FASTENERS INSPECTOR): History of vasovagal syncope, no recent episodes. Difficulty in swallowing 01/01/201506/2023 Social History Tobacco Use Types Packs/Day Years [...] on file Legal Sex Male 3:06 AM SLIDE FASTENERS INSPECTOR Gender Identity Not on file Sexual Orientation Not on file Last Filed Vital Signs Vital Sign Reading Time Taken Comments Blood Pressure 127/89 09/04/2024 5:45 PM SLIDE FASTENERS INSPECTOR Pulse 71 09/04/2024 5:45 PM SLIDE FASTENERS INSPECTOR Temperature 37 C (98.6 F) 09/04/2024 3:39 PM SLIDE FASTENERS INSPECTOR Respiratory Rate 18 09/04/2024 5:45 PM SLIDE FASTENERS INSPECTOR Oxygen Saturation 91% 09/04/2024 5:45 PM SLIDE FASTENERS INSPECTOR Inhaled Oxygen Concentration - - Weight 102.9 kg (226 lb 13.7 oz) 09/04/2024 3:39 PM SLIDE FASTENERS INSPECTOR Height 182.9 cm (6') 09/04/2024 3:39 PM SLIDE FASTENERS INSPECTOR Body Mass Index 30.77 09/04/2024 3:39 PM SLIDE FASTENERS INSPECTOR Plan of Treatment Not on file Procedures Procedure Name Priority Date/Time Associated Diagnosis Comments XR HIP RIGHT 2 OR 3 VIEWS ED 09/04/2024 4:06 PM SLIDE FASTENERS INSPECTOR POCT LIPID PANEL Routine 03/18/2024 3:29 PM CDT Lipid screening EGFR STAT 07/12/2020 8:45 PM SLIDE FASTENERS INSPECTOR from Last 3 Months or Most Recently Relevant to Health Maintenance Results * XR Hip Right 2+ views (09/04/2024 4:06 PM SLIDE FASTENERS INSPECTOR) Anatomical Region Laterality Modality Lower Extremities, Hip, Pelvis Right C omputed Radiography 09/04/2024 4:27 PM SLIDE FASTENERS INSPECTOR Narrative 09/04/2024 4:28 PM SLIDE FASTENERS INSPECTOR EXAM DESCRIPTION: XR HIP RIGHT 2 OR [...] Bennett Epps M.D. MJ: YANETH Report ID: [id number] Reading Location: [id number] Procedure Note Bennett Epps MD - 09/04/2024 [...] Bennett Epps M.D. MJ: YANETH Report ID: [id number] Reading Location: [id number] Emely IBRAHIM IMG XR PROCEDURES F inal Result * POCT lipid panel (03/18/2024 3:29 PM CDT) Pathologist [facility] [place] Cholesterol, POC 105 mg/dL HDL, POC 43 mg/dL Triglycerides, POC 88 mg/dL LDL Cholesterol POC 45 mg/dL Chol/HDL Ratio, POC 1.0 Non-HDL Cholesterol, POC 62 mg/dL Cholesterol Total, POC 105 mg/dL Capillary blood 03/18/2024 3 :29 PM CDT Bennett Tapia MD POINT OF CARE TEST ORDER BETHANY Final Result * eGFR (07/12/2020 8:45 PM SLIDE FASTENERS INSPECTOR) Pathologist [facility] [place] eGFR 60 mL/min/1.7 3 m2 [facility] Comment: Interpretive Data Reference Interval Normal >/= 90 mL/min/1.73m2 Mildly decreased* 60 - 89 mL/min/1.73m2 Mildly to moderately decreased 45 - 59 mL/min/1.73m2 Moderately to severely decreased 30 - 44 mL/min/1.73m2 Severely decreased 15 - 29 mL/min/1.73m2 Kidney Failure < 15 mL/min/1.73m2 *Relative to young adult level If -[place] multiply value by 1.16. Estimated glomerular filtration [...] 2016. Blood specimen (specimen) 07/12/2020 8:45 PM SLIDE FASTENERS INSPECTOR 07/12/2020 8:56 PM SLIDE FASTENERS INSPECTOR us Benjamin Chopra DO LAB BLOOD ORDERABLES Jackie ribeiro Result [facility] [address] Department [place] [address] from Last 3 Months or Most Recently Relevant to Health Maintenance Insurance T MEDICARE GOLD AETNA MEDICARE GOLD AETNA MEDICARE GOLD Advance Directives For more information, please contact: [phone] * Full Code (Latest Code Status on [...] 10:31 AM 07/25/2019 5:33 PM Care Teams Banjo Repair Person Relationship Specialty Start Date End Date Marck Pandya MD PCP - General 12/08/16
--- OUTSIDE RECORDS SUMMARY | 2024-11-03 16:40 | XMS_ITS ---
Author Organization [facility] Address [address] [facility] [address] [place] [address] Care Team Providers Care Home Improvement Contractor Name Role Phone Eliz Caldwell Unavailable [phone] zzzzMigration, zzzzProvider Unavailable Unav ailable REASON FOR VISIT EMR-Osiel Encounters Encounter Location Date Provider Diagnosis [facility] [address] [facility] [address] [place] [address] 06/30/2023 zzzzProvider zzzzMigration Plan Of Treatment Medication Medication Name Sig Start Date Stop Date Notes Cordran 4 MCG/SQCM apply as an occlusiv e dressing to clean, dry affected areas by topical route every 24 hours External 1 for 30 03/02/2016 05/01/2016 Albuterol Sulfate HFA 108 (9 0 Base) MCG/ACT Inhalation Progress Notes * ELISE Marck LDOB:1949 (74 yo M)Acc No.[id number]:06/30/2023 Patient: Marck JEFF :1950 A ge:72 Y S ex:Male Address:[address] [place] [address] * Refills Stop Albuterol Sulfate HFA Aerosol Solution, 108 (90 Base) MCG/ACT, Inhalation, 0 Stop Cordran Tape, 4 MCG/SQCM, External, 1, apply as an occlusive dressing to clean, dry affected areas by topical route every 24 hours, 30 Subjective: * Chief Complaints: * E MR-Osiel * Medical History: * Surgical History: * Hospitalization/Major Diagno stic Procedure: * Medications: Objective: * Vitals: * Physical Examination: Assessment: Plan: * Treatment: * Procedure Codes: * * Date:
== END 2024-11-03 14:16 | disposition home or self-care (01) ==
LOC: ANHLAB 14:18
PROVIDERS: PCP Internal Medicine; Visit Provider Internal Medicine
DX: R50.9 Fever, unspecified (principal); Z20.822 Contact with and (suspected) exposure to COVID-19
CPT/HCPCS: 87637

== ENCOUNTER 2024-11-22 09:00 | Outpatient (CLI) | payer MEDICARE, SELFPAY ==
--- NOTE | ~2024-11-22 | MR_ITS ---
MRI of the right hip Clinical history: Pain Technique: Coronal T1-weighted, T2-weighted, and proton-density fat-sat images, and axial T1-weighted and proton-density fat-sat images were acquired through the pelvis. Coronal T2-weighted images and c oronal, axial, and sagittal proton-density fat-sat images were acquired through the right hip. Findings: There is no fracture or avascular necrosis of either hip. Bone marrow signals the proximal femora and pelvic bones are unremarkable. There is extensive high-grade chondromalacia of the right h ip joint with focal subchondral cystic change in the superior acetabulum. There is minimal reactive r ight hip joint effusion. No right acetabular labral tear evident. There is moderate chondromalacia of the medial aspect of the left hip joint. There is extensive edematous change at the right gluteus medius muscle, compatible muscle strain or c ontusion. Visualized tendons appear intact. No distinct evidence for bursitis. No soft tissue mass ev ident. IMPRESSION: Extensive edematous change of the right gluteus medius muscle, compatible with muscle strain or contu wendy. Moderate degenerative change of the right hip joint, as detailed above. Reviewed, dictated and finalized at location . IMPRESSION: Extensive edematous change of the right gluteus medius muscle, compatible with muscle strain or contusion. Moderate degenerative change of the right hip joint, as detailed above.
== END 2024-11-22 09:01 | disposition home or self-care (01) ==
PROVIDERS: PCP Chiropractor Rehabilitation; Visit Provider Internal Medicine
DX: M16.11 Unilateral primary osteoarthritis, right hip (principal)
CPT/HCPCS: 73721

== ENCOUNTER 2024-12-11 12:43 | Outpatient (CLI) | payer MEDICARE, SELFPAY ==
--- OUTSIDE RECORDS SUMMARY | 2024-12-11 12:54 | XMS_ITS | Clinical Summary ---
Author Organization [facility] Address [address] [place] [address] Care Team Providers Care Planer Off Bearer Name Role Phone Marck Pandya MD Primary Care Provider [phone] Allergies No known active allergies Social History Tobacco Use Types Packs/Day Years Used Date Smoking Tobacco: Former Smokeless Tobacco: Never Alcohol Use Standard Drinks/Week Comments Never 0 (1 standard drink = 0.6 oz pur e alcohol) Sex and Gender Information Value Date Recorded Sex Assigned at Not on file Legal Sex Male 6:52 PM NOTE TELLER Gender Identity Not on file Sexual Orientation Not on file Last Filed Vital Signs Vital Sign Reading Time Taken Comments Blood Pressure 157/87 09/08/2021 4:30 AM NOTE TELLER Pulse 61 09/08/2021 4:30 AM NOTE TELLER Temperature 37.2 C (99 F) 09/07/2021 7:16 PM NOTE TELLER Respiratory Rate 18 09/08/2021 4:30 AM NOTE TELLER Oxygen Saturation 97% 09/08/2021 4:30 AM NOTE TELLER Inhaled Oxygen Concentration - - Weight 98.7 kg (217 lb 9.5 oz) 09/07/2021 7:16 P M NOTE TELLER Height 185.4 cm (6' 1 ) 09/07/2021 7:16 PM NOTE TELLER Body Mass Index 28.71 09/07/2021 7:16 PM NOTE TELLER Plan of Treatment Health Maintenance Due Date Last Done Comments Colorectal Cancer Screening Colonoscopy (10 Years) 1950 Hepatitis C 1968 DTaP, Tdap and Td Vaccines ( 1 - Tdap) 1969 Zoster Vaccines (1 of 2) 2000 Annual Medicare Wellness Visit 2015 Pneumococcal Vaccine: 65+ Ye ars (2 of 2 - PPSV23 or PCV20) 06/19/2018 06/19/2017 COVID-19 Vaccine (2023-2 5 season) 2024 RSV Immunization or 60+ Years (1 - 1-dose 75+ series) 2025 Meningococcal B Vaccine Aged Out No l onger eligible based on patient's age to complete this topic Meningococcal Vaccine Aged Out No lisa michael eligible based on patient's age to complete this topic RSV Immunizations Under 20 Months Aged Out No longer eligible based on patient's age to complete this topic Insurance AETNA Member Subscriber Plan / Payer (Ef fective 2016-Present) Name:Marck Hernandez Member ID:[id number] Relation to Subscriber:Self Name:Marck Hernandez Subscriber ID:[id number] Payer ID:[id number] (NAIC) Type:Not on file Address: [facility] [address] [place] [address] Care Teams Planer Off Bearer Relationship Specialty Start Date End Date Marck Panyda MD [address] [address] PCP - General INTERNAL MEDICINE 09/07/21
--- OUTSIDE RECORDS SUMMARY | 2024-12-11 12:54 | XMS_ITS | Patient Health Record ---
Author Organization [facility] Address [address] [facility] [address] [place] [address] Care Team Providers Care Mainframe Programmer Analyst Name Role Phone Eliz Caldwell Unavailable [phone] Allergies No Known Allergies Reason For Referral [...] Status W/U Status Risk Notes Problem Pruritus (770927382) Pruritus, unspecified (L29.9) Active confirmed Plan Of Treatment No Information Insurance Providers Payer Name Payer Address Payer Phone Subscriber Number Group Number Insured Name Patient Relationship to Insured Coverage Start Date Coverage End Date Mirella BARROW [address] [place] [address] [id number] Marck Hernandez Self - patient is the insured 6 Medical (General) History Surgical History Surgery Date(Month/Year) Cholecstectomy; 2015-11-16
--- OUTSIDE RECORDS SUMMARY | 2024-12-11 12:54 | XMS_ITS | Referral Summary ---
Author Organization [facility] Address [address] [place] [address] Care Team Providers Care Marine Fire Fighter Name Role Phone Marck Pandya MD Primary Care Provider Allergies Active Allergy Reactions Criticality Noted Date Comments Trazodone Other (See comments) Low 11/01/2023 Made me really antsy and couldn't sleep Medications albuterol (PROVENTIL,GIRMA TOLIN) 0.63 mg/3 mL nebulizer solution Take 0.83 mg by nebulization every 6 (six) hours as needed for wheezing Active coenzyme Q10 100 mg capsule Take 2 capsules (200 mg total) by mouth daily Active b complex vitamins tablet Take 1 tablet by mouth daily Active ascorbic acid (VITAMIN C) 1,000 mg tablet Take 1 tablet (1,000 mg total) by mouth daily Active multivitamin capsuleIndicat ions:with fiber per pt Take 1 capsule by [...] total) by mouth every 12 (twelve) hours 11/05/19 21 Active diphenhydramin e HCl (BENADRYL ALLERGY ORAL) Take by mouth Take 2 tablets before bedtime. Active clobetasoL (TEMOVATE) 0.05 % ointment 07/28/20 21 Active tadalafiL (CIALIS) 5 mg tablet tadalafil 5 mg tablet Take 1 tablet by mouth once daily Active meclizine (ANTIVERT) 25 mg tablet Take 1 tablet (25 mg total) by mouth 3 (three) times a day as needed 03/18/20 24 Active carvediloL (COREG) 6.25 mg tablet TAKE 1 TABLET BY MOUTH TWICE DAILY WITH MEALS 180 tablet 3 06/02/20 24 Active omeprazole (PriLOSEC) 40 mg capsule TAKE 1 CAPSULE BY MOUTH TWICE DAILY 45 MINUTES BEFORE BREAKFAST AND DINNER 180 capsule 3 09/16/19 25 Active atorvastatin (LIPITOR) 20 mg tablet Take 1 tablet by mouth once daily 90 tablet 11/25/19 25 Active atorvastatin (LIPITOR) 20 mg tablet Take 1 tablet (20 mg total) by mouth daily 90 tablet 1 05/05/20 24 025 Discontinued Active Problems Problem Noted Date Diagnosed Date History of Naranjo's esophagus 09/27/2023 Balance problem 12/18/2022 Mixed diabetic hyperlipidemi a associated with type 2 diabetes mellitus 12/18/2022 Dizziness 11/22/2020 Esophagitis 08/19/2020 Overview (08/19/2020): Added automatically from request for surgery [id number] Vasovagal syncope 11/11/2019 Dysphagia 06/03/2019 Overview (06/03/2019): Added automatically from request for surgery [id number] Syncope and collapse 08/31/2018 Naranjo's esophagus without dysplasia 05/22/2018 Overview (05/22/2018): Added automatically from request for surgery [id number] Mixed hyperlipidemia 08/14/2017 Assessment & Plan (08/14/2017 8:47 PM GUEST RELATIONS RECEPTIONIST): POC lipids today show LDL cholesterol 120, and in 2016 LDL was 150. Patient has no known [...] 08/14/2017 Assessment & Plan (08/14/2017 8:49 PM GUEST RELATIONS RECEPTIONIST): Does not appear infected but does need to be treated. Stricture of esophagus 01/05/2016 Obstructive sleep apnea syndrome 11/25/2015 Overview (12/14/2016): JS (obstructive sleep apnea) Chronic cough 11/25/2015 Overview (12/14/2016): Chronic cough Asthma 06/29/2015 Overview (12/14/2016): Asthma in remission Ventricular premature beats 05/18/2015 Overview (12/14/2016): PVCs (premature ventricular contractions) Assessment & Plan (08/14/2017 8:45 PM GUEST RELATIONS RECEPTIONIST): History of frequent PVCs, up to 18% of cardiac cycles, improved with very low- dose carvedilol. Cardiomyopathy, dilated 05/18/2015 Overview (12/15/2016): Cardiomyopathy Assessment & Plan (08/14/2017 8:45 PM GUEST RELATIONS RECEPTIONIST): 2012: EF 41% 2014: EF 60% with some LV enlargement and [...] 12/18/2022 Assessment & Plan (08/14/2017 8:46 PM GUEST RELATIONS RECEPTIONIST): Mild asymptomatic bradycardia. Continue carvedilol Chest discomfort 12/03/2015 12/18/2022 Stomach ache 12/03/2015 12/18/2022 Naranjo's esophagus with low grade dysplasia 6 12/18/2022 Chronic combined systolic an d diastolic heart failure (CMS/HCC) 06/29/2015 12/18/2022 Overview (12/14/2016): Chronic combined systolic and diastolic CHF (congestive heart failure) Vasovagal symptom 06/29/2015 11/22/2020 Overview (12/14/2016): Vasovagal near syncope Assessment & Plan (08/14/2017 8:45 PM GUEST RELATIONS RECEPTIONIST): History of vasovagal syncope, no recent episodes. [...] on file Legal Sex Male 3:06 AM GUEST RELATIONS RECEPTIONIST Gender Identity Not on file Sexual Orientation Not on file Last Filed Vital Signs Vital Sign Reading Time Taken Comments Blood Pressure 127/89 09/04/2024 5:45 PM GUEST RELATIONS RECEPTIONIST Pulse 71 09/04/2024 5:45 PM GUEST RELATIONS RECEPTIONIST Temperature 37 C (98.6 F) 09/04/2024 3:39 PM GUEST RELATIONS RECEPTIONIST Respiratory Rate 18 09/04/2024 5:45 PM GUEST RELATIONS RECEPTIONIST Oxygen Saturation 91% 09/04/2024 5:45 PM GUEST RELATIONS RECEPTIONIST Inhaled Oxygen Concentration - - Weight 102.9 kg (226 lb 13.7 oz) 09/04/2024 3:39 PM GUEST RELATIONS RECEPTIONIST Height 182.9 cm (6') 09/04/2024 3:39 PM GUEST RELATIONS RECEPTIONIST Body Mass Index 30.77 09/04/2024 3:39 PM GUEST RELATIONS RECEPTIONIST Plan of Treatment Not on file Procedures Procedure Name Priority Date/Time Associated Diagnosis Comments POCT LIPID PANEL Routine 03/18/2024 3:29 PM CDT Lipid screening EGFR STAT 07/12/2020 8:45 PM GUEST RELATIONS RECEPTIONIST from Last 3 Months or Most Recently Relevant to Health Maintenance Results * POCT lipid panel (03/18/2024 3:29 PM CDT) Cholesterol, POC 105 mg/dL HDL, POC 43 mg/dL Triglycerides, POC 88 mg/dL LDL Cholesterol POC 45 mg/dL Chol/HDL Ratio, POC 1.0 Non-HDL Cholesterol, POC 62 mg/dL Cholesterol Total, POC 105 mg/dL Capillary blood 03/18/2024 3 :29 PM CDT Bennett Tapia MD POINT OF CARE TEST ORDER BETHANY Final Result * eGFR (07/12/2020 8:45 PM GUEST RELATIONS RECEPTIONIST) eGFR 60 mL/min/1.7 3 m2 [facility] Comment: Interpretive Data Reference Interval Normal >/= 90 mL/min/1.73m2 Mildly decreased* 60 - 89 mL/min/1.73m2 Mildly to moderately decreased 45 - 59 mL/min/1.73m2 Moderately to severely decreased 30 - 44 mL/min/1.73m2 Severely decreased 15 - 29 mL/min/1.73m2 Kidney Failure < 15 mL/min/1.73m2 *Relative to young adult level If -Latvian multiply value by 1.16. Estimated glomerular filtration [...] 2016. Blood specimen (specimen) 07/12/2020 8:45 PM GUEST RELATIONS RECEPTIONIST 07/12/2020 8:56 PM GUEST RELATIONS RECEPTIONIST us Benjamin Chopra DO LAB BLOOD ORDERABLES Jackie ribeiro Result [facility] [address] Department [place] [address] from Last 3 Months or Most Recently Relevant to Health Maintenance Insurance AETNA MEDICARE GOLD [employer] MEDICARE GOLD AETNA MEDICARE GOLD Advance Directives For more information, please contact: [phone] * Full Code (Latest Code Status on [...] 10:31 AM 07/25/2019 5:33 PM Care Teams Marine Fire Fighter Relationship Specialty Start Date End Date Marck Pandya MD PCP - General 12/08/16
--- OUTSIDE RECORDS SUMMARY | 2024-12-11 12:54 | XMS_ITS ---
Author Organization [facility] Address [address] [address] [place] [address] Care Team Providers Care Flyer Repairer Name Role Phone Eliz Caldwell Unavailable [phone] zzzzMigration, zzzzProvider Unavailable Unav ailable REASON FOR VISIT EMR-Osiel Encounters Encounter Location Date Provider Diagnosis [facility] [address] [facility] [address] [place] [address] 06/30/2023 zzzzProvider zzzzMigration Plan Of Treatment Medication Medication Name Sig Start Date Stop Date Notes Cordran 4 MCG/SQCM apply as an occlusiv e dressing to clean, dry affected areas by topical route every 24 hours External 1 for 30 03/02/2016 05/01/2016 Albuterol Sulfate HFA 108 (9 0 Base) MCG/ACT Inhalation Progress Notes * ELISE Marck LDOB:1949 (74 yo M)Acc No.[id number]:06/30/2023 Patient: Marck JEFF :1950 A ge:72 Y S ex:Male Address:[address] [place] [address] * Refills Stop Albuterol Sulfate HFA Aerosol Solution, 108 (90 Base) MCG/ACT, Inhalation, 0 Stop Cordran Tape, 4 MCG/SQCM, External, 1, apply as an occlusive dressing to clean, dry affected areas by topical route every 24 hours, , 30 Subjective: * Chief Complaints: * E MR-Osiel * Medical History: * Surgical History: * Hospitalization/Major Diagno stic Procedure: * Medications: Objective: * Vitals: * Physical Examination: Assessment: Plan: * Treatment: * Procedure Codes: * true * Date: Generated for Suzanne hansen/Brayden/Robbie on: 0 12/11/2024 12:54 PM CDT
--- OUTSIDE RECORDS SUMMARY | 2024-12-11 12:54 | XMS_ITS ---
Author Organization [facility] Address [address] [facility] [address] [place] [address] Care Team Providers Care Trimmer Tailer Name Role Phone lEiz Caldwell Unavailable [phone] zzzzMigration, zzzzProvider Unavailable Unav ailable Allergies No Known Allergies REASON FOR VISIT EMR-[facility] Medications Medication SIG (Take, Route, Frequency, Duration) [...] tez Encounters Encounter Location Date Provider Diagnosis [facility] [address] [facility] [address] [place] [address] 07/01/2023 zzzzProvider zzzzMigration Plan Of Treatment No Information Progress Notes * Marck HERNANDEZ LDOB:1949 (74 yo M)Acc No.[id number]:07/01/2023 Patient: Riaz NEGRO Marck Cherry :1950 A ge:72 Y S ex:Male Address:[address] [place] [address], [place], [address] Subjective: * Chief Complaints: * E MR-Osiel [...]
--- OUTSIDE RECORDS SUMMARY | 2024-12-11 12:54 | XMS_ITS | Clinical Summary ---
Author Organization [facility] Address [address] [place] [address] Care Team Providers Care Dumper Bulk System Name Role Phone Marck Pandya MD Primary [...] (08/19/2020): Added automatically from request for surgery [id number] Vasovagal syncope 11/11/2019 Dysphagia 06/03/2019 Overview (06/03/2019): Added automatically from request for surgery [id number] Syncope and collapse 08/31/2018 Naranjo's esophagus without dysplasia 05/22/2018 Overview (05/22/2018): Added automatically from request for surgery [id number] Mixed hyperlipidemia 08/14/2017 Assessment & Plan (08/14/2017 8:47 PM MARRIAGE COUNSELOR MINISTER): POC lipids today show LDL cholesterol 120, [...] 08/14/2017 Assessment & Plan (08/14/2017 8:49 PM MARRIAGE COUNSELOR MINISTER): Does not appear infected but does need to be treated. Stricture of esophagus 01/05/2016 Obstructive sleep apnea syndrome 11/25/2015 Overview (12/14/2016): JS (obstructive sleep apnea) Chronic cough 11/25/2015 Overview (12/14/2016): Chronic cough Asthma 06/29/2015 Overview (12/14/2016): Asthma in remission Ventricular premature beats 05/18/2015 Overview (12/14/2016): PVCs (premature ventricular contractions) Assessment & Plan (08/14/2017 8:45 PM MARRIAGE COUNSELOR MINISTER): History of frequent PVCs, up to 18% of cardiac cycles, improved with very low- dose carvedilol. Cardiomyopathy, dilated 05/18/2015 Overview (12/15/2016): Cardiomyopathy Assessment & Plan (08/14/2017 8:45 PM MARRIAGE COUNSELOR MINISTER): 2012: EF 41% 2014: EF 60% with [...] 12/18/2022 Assessment & Plan (08/14/2017 8:46 PM MARRIAGE COUNSELOR MINISTER): Mild asymptomatic bradycardia. Continue carvedilol Chest discomfort 12/03/2015 12/18/2022 Stomach ache 12/03/2015 12/18/2022 Naranjo's esophagus with low grade dysplasia 6 12/18/2022 Chronic combined systolic an d diastolic heart failure (CMS/HCC) 06/29/2015 12/18/2022 Overview (12/14/2016): Chronic combined systolic and diastolic CHF (congestive heart failure) Vasovagal symptom 06/29/2015 11/22/2020 Overview (12/14/2016): Vasovagal near syncope Assessment & Plan (08/14/2017 8:45 PM MARRIAGE COUNSELOR MINISTER): History of vasovagal syncope, no recent episodes. Difficulty in swallowing 01/01/201506/2023 Surgical History Surgery Date Site/Laterality Comments CHOLECYSTECTOMY COLONOSCOPY KNEE SURGERY UPPER GASTROINTESTINAL ENDOSCOPY Medical History Medical History Date Comments Asthma Gastroesophageal reflux disease Diverticulosis CHF (congestive heart failure) (HCC) COPD (chronic obstructive pu lmonary disease) ([facility]) pt states questionable, unsu re if he has it or not Depression Cataract Type 2 diabetes mellitus ([facility]) JS on CPAP Naranjo esophagus Hypertension Hyperlipidemia Neuropathy Family History Medical History Relation Name Comments [...] on file Legal Sex Male 3:06 AM MARRIAGE COUNSELOR MINISTER Gender Identity Not on file Sexual Orientation Not on file Obstetrics History Last Filed Vital Signs Vital Sign Reading Time Taken Comments Blood Pressure 127/89 09/04/2024 5:45 PM MARRIAGE COUNSELOR MINISTER Pulse 71 09/04/2024 5:45 PM MARRIAGE COUNSELOR MINISTER Temperature 37 C (98.6 F) 09/04/2024 3:39 PM MARRIAGE COUNSELOR MINISTER Respiratory Rate 18 09/04/2024 5:45 PM MARRIAGE COUNSELOR MINISTER Oxygen Saturation 91% 09/04/2024 5:45 PM MARRIAGE COUNSELOR MINISTER Inhaled Oxygen Concentration - - Weight 102.9 kg (226 lb 13.7 oz) 09/04/2024 3:39 PM MARRIAGE COUNSELOR MINISTER Height 182.9 cm (6') 09/04/2024 3:39 PM MARRIAGE COUNSELOR MINISTER Body Mass Index 30.77 09/04/2024 3:39 PM MARRIAGE COUNSELOR MINISTER Plan of Treatment Health Maintenance Due Date [...] Assessment 11/01/2024 11/01/2023 Lipid Panel 03/18/2025 03/18/2024, 04/, 11/01/2022, Additional history exists Procedures Procedure Name Priority Date/Time Associated Diagnosis Comments POCT LIPID PANEL Routine 03/18/2024 3:29 PM CDT Lipid screening EGFR STAT 07/12/2020 8:45 PM MARRIAGE COUNSELOR MINISTER from Last 3 Months or Most Recently [...] Final Result * eGFR (07/12/2020 8:45 PM MARRIAGE COUNSELOR MINISTER) eGFR 60 mL/min/1.7 3 m2 [facility] Comment: Interpretive Data Reference Interval Normal >/= 90 mL/min/1.73m2 Mildly decreased* 60 - 89 mL/min/1.73m2 Mildly to moderately decreased 45 - 59 mL/min/1.73m2 Moderately to severely decreased 30 - 44 mL/min/1.73m2 Severely decreased 15 - 29 mL/min/1.73m2 Kidney Failure < 15 mL/min/1.73m2 *Relative to young adult level If -[place]ican multiply value by 1.16. Estimated glomerular filtration [...] 2016. Blood specimen (specimen) 07/12/2020 8:45 PM MARRIAGE COUNSELOR MINISTER 07/12/2020 8:56 PM MARRIAGE COUNSELOR MINISTER Benjamin Chopra DO LAB BLOOD ORDERABLES Jackie ribeiro Result [facility] [address] Department [place] [address] from Last 3 Months or Most Recently Relevant to Health Maintenance Insurance AETNA MEDICARE GOLD AETNA MEDICARE GOLD AETNA MEDICARE GOLD Advance Directives For more information, please contact: [phone] * Full Code (Latest Code Status on [...] 10:31 AM 07/25/2019 5:33 PM Care Teams Dumper Bulk System Relationship Specialty Start Date End Date Marck Pandya MD PCP - General 12/08/16
--- NOTE | 2024-12-11 13:45 | NEURO_ITS ---
Nerve Conduction Studies Motor Nerve Results ? Latency Amplitude F-Lat Segment Distance CV Comment Site (ms) (mV) (ms) (cm) (m/s) Left Median (APB) Motor Wrist 3.9 4.4 Elbow 8.1 4.2 Elbow-Wrist 240 57 Right Median (APB) Motor Wrist 3.5 4.5 Elbow 7.9 4.3 Elbow-Wrist 230 52 Left Ulnar (ADM) Motor Wrist 2.6 4.7 Bel Elbow 7.4 4.3 Bel Elbow-Wrist 235 49 Abv Elbow 9.2 4.2 Abv Elbow-Bel Elbow 80 44 Right Ulnar (ADM) Motor Wrist 2.7 4.8 Bel Elbow 6.9 4.4 Bel Elbow-Wrist 220 52 Abv Elbow 8.8 4.3 Abv Elbow-Bel Elbow 75 39 Sensory Nerve Results ? Latency (Peak) Amplitude (P-P) Segment Distance CV Comment Site (ms) (?V) (cm) (m/s) Left Median DigIII Sensory Wrist-Dig III 4.0 9 Wrist-Dig III 150 38 Right Median DigIII Sensory Wrist-Dig III 4.1 16 Wrist-Dig III 150 37 Left Median-Ulnar Palmar Sensory ? Median Palm-Wrist 2.2 19 Palm-Wrist 80 36 ? Ulnar Palm-Wrist 2.2 11 Palm-Wrist 80 36 Right Median-Ulnar Palmar Sensory ? Median Palm-Wrist 2.2 23 Palm-Wrist 80 36 ? Ulnar Palm-Wrist 2.2 10 Palm-Wrist 80 36 Left Radial Sensory Forearm-Wrist 2.3 10 Forearm-Wrist 100 43 Right Radial Sensory Forearm-Wrist 2.4 11 Forearm-Wrist 100 42 Left Ulnar Sensory Wrist-Dig V 3.6 13 Wrist-Dig V 145 40 Right Ulnar Sensory Wrist-Dig V 4.0 5 Wrist-Dig V 140 35 Electromyography ?Side Muscle Nerve Ins Act Fibs Psw Amp Dur Recrt Comment Right Deltoid Axillary Nml Nml Nml Nml Nml Nml Right Triceps Radial Nml Nml Nml Nml Nml Nml Right ExtCarUln Radial (Post Int) Nml Nml Nml Nml Nml Nml Right FlexPolLong Median (Ant Int) Nml Nml Nml Nml Nml Nml Right 1stDorInt Ulnar Nml Nml Nml Nml Nml Nml Right Abd Poll Brev Median Nml Nml Nml Nml Nml Nml Right FlexDigProf Ulnar Nml Nml Nml Nml Nml Nml Right FlexCarRad Median Nml Nml Nml Nml Nml Nml Left Deltoid Axillary Nml Nml Nml Nml Nml Nml Left Triceps Radial Nml Nml Nml Nml Nml Nml Left ExtCarUln Radial (Post Int) Nml Nml Nml Nml Nml Nml Left FlexPolLong Median (Ant Int) Nml Nml Nml Nml Nml Nml Left 1stDorInt Ulnar Nml Nml Nml Nml Nml +1 Left Abd Poll Brev Median Nml Nml Nml Nml Nml Nml Left FlexDigProf Ulnar Nml Nml Nml Nml Nml Nml Left FlexCarRad Median Nml Nml Nml Nml Nml Nml MTDD
== END 2024-12-11 12:44 | disposition home or self-care (01) ==
PROVIDERS: PCP Internal Medicine; Visit Provider Psychiatry & Neurology Neurology
DX: R20.0 Anesthesia of skin (principal)
CPT/HCPCS: 95886; 95912